=== PATIENT | male | born 1965 | race Caucasian/White ===

== ENCOUNTER → 2020-07-19 | Outpatient (CLI) | payer OTHER | LOC: M.ULTRA 11:25 | PROVIDERS: ATTEND Family Medicine | DX: H43.9 Unspecified disorder of vitreous body (principal); H35.9 Unspecified retinal disorder; R05 Cough; I10 Essential (primary) hypertension ==

== ENCOUNTER → 2021-05-16 | Outpatient (CLI) | payer OTHER | LOC: M.CT 12:37 | PROVIDERS: ATTEND Nurse Practitioner Family | DX: I25.10 Atherosclerotic heart disease of native coronary artery without angina pectoris (principal); K80.20 Calculus of gallbladder without cholecystitis without obstruction; R79.89 Other specified abnormal findings of blood chemistry; Z86.16 Personal history of COVID-19 ==